=== PATIENT | male | born 1975 | race Caucasian/White ===

== ENCOUNTER 2017-07-11 16:15 | Emergency (ER) | payer OTHER ==
[2017-07-11] MEDS ORDERED: Adenosine* 3 MG/ML VIAL ONE (16:30)
[2017-07-11] MEDS ORDERED: Adenosine* 3 MG/ML VIAL IV PUSH ONE (16:43)
[2017-07-11 17:11] LABS: ABS Basophils 0 10^3/ul (0-0.2); ABS Eosinophils 0.3 10^3/ul (0-0.6); ABS Lymphocytes 2.4 10^3/ul (1.0-4.8); ABS Monocytes 0.8 10^3/ul (0-0.8); ABS Nucleated RBC 0 10^3/ul; Eosinophil % 2.7 % (0-6); Hematocrit 41 % (42-52); Hemoglobin 13.9 g/dl (14.0-18.0); Lymphocyte % 25.3 % (25-47); Mean Corpuscular HGB Conc 34 g/dl (31-36); Mean Corpuscular Hemoglobin 32 pg (27-31); Mean Corpuscular Volume 94 fL (80-94); Mean Platelet Volume 7 um3 (7.4-10.4); Nucleated Red Blood Cells % 0; Platelet Count 290 10^3/ul (150-450); Red Blood Count 4.38 10^6/ul (4.0-5.4); Red Cell Distribution Width 12 % (10.5-15); White Blood Count 9.4 10^3/ul (3.5-10.8)
[2017-07-11 17:25] LABS: EGFR Non-African American 107.6 (>60)
[2017-07-11 19:10] VITALS: BP 127/88
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
== END 2017-07-11 19:12 | disposition home or self-care (01) ==
LOC: ED 16:15
DX: I47.1 Supraventricular tachycardia (principal); I48.91 Unspecified atrial fibrillation; I10 Essential (primary) hypertension; F17.210 Nicotine dependence, cigarettes, uncomplicated
CPT/HCPCS: 36415; 80053; 80178; 83605; 83735; 84443; 84484; 85025; 93005; 96374; 99283; J0153

== ENCOUNTER 2017-11-24 07:42 | Emergency (ER) | payer OTHER ==
[2017-11-24 07:55] VITALS: BP 131/86
--- NOTE | 2017-11-24 09:01 | UC ---
HPI Febrile Illness - HPI Summary HPI Summary: PATIENT HAS HAD INTERMITTENT SWELLING IN HIS RIGHT FOOT OVER THE PAST 6 MONTHS BUT ABOUT 2 DAYS AGO HE DEVELOPED INCREASING PAIN, SWELLING AND REDNESS. SYMPTOMS ARE WORSE IN HIS RIGHT GREAT TOE. NO H/O GOUT. AT THE SAME TIME HE DEVELOPED SEVERE LEFT SHOULDER PAIN AND IS UNABLE TO GO THROUGH FULL RANGE OF MOTION. HE'S HAD FEVER, CHILLS AND OVERALL MALAISE. HE DENIES ANY HIGH RISK ACTIVITIES OR EXPOSURE TO INFECTIOUS DISEASES THAT HE IS AWARE OF. NO RECENT TRAVEL. NO INJURY OR TRAUMA. PAIN IS KEEPING HIM AWAKE AT NIGHT. TOOK TYLENOL ABOUT 2 HOURS CONVEYANCER BUT IS STILL RUNNING FEVER. REPORTS HE WAS ADVISED NOT TO TAKE IBUPROFEN DUE TO HIS MEDICATIONS. - History of Current Complaint Chief Complaint: UCUpperExtremity Time Seen by Provider: 11/24/17 08:35 Hx Obtained From: Patient Onset/Duration: Started Days Ago Timing: Constant Initial Severity: Moderate Current Severity: Moderate Pain Intensity: 10 Pain Scale Used: 0-10 Numeric Aggravating Factors: Nothing Alleviating Factors: Nothing Associated Signs and Symptoms: Arthralgia, Chills, Joint Pain, Myalgia, Swelling - Allergy/Home Medications Allergies/Adverse Reactions: Allergies Allergy/AdvReac Type Severity Reaction Status Date / Time NSAIDS (Non-Steroidal Allergy GI Upset Verified 11/24/17 07:56 Anti-Inflamma Home Medications: Home Medications LORazepam [Ativan 0.5 MG TAB] 0.5 mg PO QID 11/24/17 [History Confirmed 11/24/17 ] [place] Carbonate [[place] Carbonate 300 mg cap] 300 mg PO 11/24/17 [History] [place] Carbonate [[place] Carbonate 600 mg cap] 600 mg PO 11/24/17 [History] Prazosin CAP* [Minipress CAP*] 2 mg PO DAILY 11/24/17 [History Confirmed ] Venlafaxine ER (NF) [Effexor ER (NF)] 150 mg PO DAILY 11/24/17 [History Confirmed 11/24/17] PMH/Surg Hx/FS Hx/Imm Hx Cardiovascular History: Cardiac Disease - SVT, Hypertension, Atrial Fibrillation Respiratory History: Asthma Psychological History: Anxiety, Bipolar Disorder - Surgical History Surgical History: Yes Surgery Procedure, Year, and Place: LT SHOULDER REPAIR. CARDIAC ABLATION x 2 IN [facility] 02/2012 - Family History Known Family History: Positive: Other - CA Negative: Diabetes - Social History Alcohol Use: Weekly Substance Use Type: Marijuana Substance Use Comment - Amount & Last Used: Suboxone Smoking Status (MU): Light Every Day Tobacco Smoker Type: Cigarettes Amount Used/How Often: 1/2 PPD Length of Time of Smoking/Using Tobacco: 20 years Have You Smoked in the Last Year: Yes - Immunization History Most Recent Tetanus Shot: 2009 Review of Systems Constitutional: Fever, Chills Respiratory: Negative Cardiovascular: Negative Gastrointestinal: Negative Musculoskeletal: Arthralgia, Decreased ROM, Edema, Myalgia All Other Systems Reviewed And Are Negative: Yes Physical Exam Triage Information Reviewed: Yes Appearance: Well-Nourished, Ill-Appearing - PT CLEARLY UNCOMFORTABLE AND FEELING UNWELL Vital Signs: Initial Vital Signs Temp 101.3 F 11/24/17 07:51 Pulse 110 11/24/17 07:51 Resp 18 11/24/17 07:51 BP 131/86 11/24/17 07:51 Pulse Ox 98 11/24/17 07:51 Vital Signs Reviewed: Yes Eyes: Positive: Conjunctiva Clear ENT: Positive: Hearing grossly normal Neck: Positive: Supple Respiratory: Positive: No respiratory distress, Wheezing - MILD OCCASIONAL Cardiovascular: Positive: Tachycardia Abdomen Description: Positive: Soft Musculoskeletal: Positive: ROM Limited @ - LEFT SHOULDER, Edema @ - RIGHT FOOT, Other: - TTP LEFT POSTERIOR SHOULDER. RIGHT FOOT SWOLLEN, WARM AND TENDER OVER GREAT TOE Neurological: Positive: Alert Psychological: Positive: Normal Response To Family, Age Appropriate Behavior Skin: Positive: Other - RIGHT FOOT ERYTHEMA Course/Dx - Course Course Of Treatment: PT NEEDS ARE BEYOND WHAT WE CAN OFFER HERE AT THE . NEED TO R/O EARLY SEPSIS. RECOMMENDED TRANSFER TO ED. PT OFFERED TRANSPORT BY AMBULANCE BUT DECLINES. ADVISED THAT BY NOT TRAVELING IN A MONITORED SETTING HE COULD BE RISKING WORSENING OF HIS CONDITION THAT COULD POSE A THREAT TO HIS LIFE , HEALTH AND MEDICAL SAFETY. HE VERBALIZES UNDERSTANDING AND CONTINUES TO DECLINE AMBULANCE TRANSFER. - Diagnoses Clinic Provider Diagnoses: FEVER/ARTHRALGIA - Provider Notifications Discussed Patient Care With: Andrew Santos - TO [facility] BY PRIVATE CAR Time Discussed With Above Provider: 09:09 Instructed by Provider To: MD Will See In ED Discharge - Sign-Out/Discharge Documenting (check all that apply): Discharge/Admit/Transfer - Discharge Plan Condition: Stable Disposition: HOME Patient Education Materials: Fever in Adults (ED), Swollen Joint (ED) Referrals: No Primary Care Phys,NOPCP [Primary Care Provider] - Additional Instructions: I'M CONCERNED ABOUT YOUR CONSTELLATION OF SYMPTOMS INCLUDING RIGHT FOOT SWELLING , PAIN AND REDNESS WITH FEVER AND LEFT SHOULDER PAIN. I FEEL YOU WOULD BE BETTER SERVED TO HAVE EVALUATION DONE IN THE EMERGENCY DEPARTMENT. GO DIRECTLY THERE FROM HERE FOR FURTHER MANAGEMENT. YOU HAVE DECLINED AMBULANCE TRANSFER. BE ADVISED THAT BY NOT TRAVELING IN A MONITORED SETTING YOU COULD BE RISKING WORSENING OF YOUR CONDITION THAT COULD POSE A THREAT TO YOUR LIFE, HEALTH AND MEDICAL SAFETY. - Billing Disposition and Condition Condition: STABLE Disposition: Home
== END 2017-11-24 09:08 | disposition home or self-care (01) ==
LOC: UCEAST 07:42
DX: R50.9 Fever, unspecified (principal); M25.50 Pain in unspecified joint; F31.9 Bipolar disorder, unspecified; F17.210 Nicotine dependence, cigarettes, uncomplicated; I10 Essential (primary) hypertension; I48.91 Unspecified atrial fibrillation; F41.9 Anxiety disorder, unspecified
CPT/HCPCS: 99211; G0463

== ENCOUNTER 2017-11-24 09:29 | Inpatient (IN) | payer OTHER ==
[2017-11-24] MEDS ORDERED: NS 0.9% 1000 ML*IV.FLUID IV ONE (10:00)
[2017-11-24] MEDS ORDERED: Acetaminophen TAB* 325 MG PO ONE (10:04)
[2017-11-24] MEDS ORDERED: Piperacillin/Tazobac ADVAN(*) 3.375 GM in NS 0.9% 100 ML* 100 ML IVPB ONE (10:05)
[2017-11-24] MEDS ORDERED: NS 0.9% 250 ML* 250 ML ONE (10:23)
[2017-11-24] MEDS ORDERED: NS 0.9% 100 ML* 100 ML ONE (10:23)
[2017-11-24] MEDS ORDERED: Vancomycin(*) 1,250 MG in NS 0.9% 250 ML* 250 ML IVPB ONE (10:37)
[2017-11-24 10:43] LABS: INR 1.09 (0.77-1.02)
[2017-11-24] MEDS ORDERED: Vancomycin per Pharmacy* NOTE FOLLOW UP PRN (10:44)
--- NOTE | 2017-11-24 10:49 | RAD ---
INDICATION: Chest pain COMPARISON: May 26, 2012 TECHNIQUE: An AP portable view obtained at 1035 hours is submitted. FINDINGS: Bones/Soft Tissues: There are no acute bony findings. Cardiomediastinal: The cardiomediastinal silhouette is normal. Lungs: There are no infiltrates. Pleura: There are no pleural effusions. Other: None IMPRESSION: NO ACTIVE DISEASE.
--- NOTE | 2017-11-24 10:52 | RAD ---
Indication: Redness and swelling between the first and second metatarsal phalangeal joints without proceeding injury. Comparison: No relevant prior exams available on the [facility] [place] [place] [facility] for comparison. Technique: AP, lateral, and oblique views RIGHT foot. Report: Normal articular alignment. No fracture, findings of stress reaction, or suspicious focal osseous lesions. Minimal osteophytosis and moderate joint space narrowing at the first metatarsal phalangeal joint secondary to osteoarthritis. Small loose body or accessory ossicle noted at the dorsal aspect of the first metatarsal phalangeal joint. No osseous erosions or soft tissue calcification evident. No suspicious soft tissue contour abnormality or foreign body evident. Negative for subcutaneous emphysema. 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
[2017-11-24 11:00] LABS: ABS Basophils 0 10^3/ul (0-0.2); ABS Eosinophils 0 10^3/ul (0-0.6); ABS Lymphocytes 1.2 10^3/ul (1.0-4.8); ABS Neutrophils 11.2 10^3/ul (1.5-7.7); ABS Nucleated RBC 0 10^3/ul; Eosinophil % 0.4 % (0-6); Hematocrit 38 % (42-52); Lymphocyte % 9.2 % (25-47); Mean Corpuscular HGB Conc 34 g/dl (31-36); Mean Corpuscular Hemoglobin 32 pg (27-31); Mean Corpuscular Volume 92 fL (80-94); Mean Platelet Volume 7.7 um3 (7.4-10.4); Nucleated Red Blood Cells % 0; Platelet Count 217 10^3/ul (150-450); Red Blood Count 4.12 10^6/ul (4.00-5.40); Red Cell Distribution Width 13 % (10.5-15); White Blood Count 13.5 10^3/ul (3.5-10.8)
[2017-11-24] MEDS ORDERED: Vancomycin(*) 0 MG in NS 0.9% 250 ML* 250 ML IVPB SCH (11:00)
[2017-11-24 11:01] LABS: EGFR Non-African American 102.6 (>60)
[2017-11-24] MEDS: Vancomycin(*) 1,000 MG in NS 0.9% 250 ML* 250 ML IVPB ONE ×2 (11:39→15:33)
[2017-11-24] MEDS ORDERED: Magnesium Hydroxide LIQ* 30 ML UDC PO PRN (12:25)
[2017-11-24] MEDS ORDERED: Albuterol 2.5 MG/3 ML NEB.SOL* (0.083%) INH PRN (12:25)
[2017-11-24] MEDS ORDERED: Ondansetron 40 MG VIAL* 2 MG/ML 20 ML VIAL IV PRN (12:25)
[2017-11-24] MEDS ORDERED: Al Hydrox/Mg Hydrox/Simet LIQ* 30 ML UDC PO PRN (12:25)
[2017-11-24] MEDS ORDERED: LORazepam TAB(*) 0.5 MG PO PRN (12:31)
[2017-11-24 14:06] LABS: Uric Acid 5.6 mg/dL (4.4-7.6)
[2017-11-24] MEDS: CMC:Lithium Carbonate ER (NF) 300 MG TAB.ER PO SCH ×2 (14:30→21:18)
[2017-11-24] MEDS: Amphetamine MIXED SALT TAB* 10 MG TAB PO SCH ×2 (14:30→21:19)
[2017-11-24] MEDS: oxyCODONE/Acetamin 5/325 MG* TAB PO PRN (14:40)
[2017-11-24] MEDS: Acetaminophen TAB* 325 MG PO PRN ×2 (14:40→21:17)
[2017-11-24] MEDS: Piperacillin/Tazobac ADVAN(*) 3.375 GM in NS 0.9% 100 ML* 100 ML IVPB SCH ×2 (15:46→23:23)
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
[2017-11-24] MEDS: Vancomycin(*) 1,000 MG in NS 0.9% 250 ML* 250 ML IVPB SCH (21:17)
[2017-11-24] MEDS: Venlafaxine EXT RELEASE CAP* 75 MG PO SCH (21:17)
[2017-11-25] MEDS ORDERED: ceFAZolin 2 GM PREMIX (*) 2 GM/50 ML BAG IVPB ONE (04:30)
[2017-11-25] MEDS ORDERED: Ketorolac INJ* 30 MG/ML 1 ML VIAL IV ONE (04:45)
[2017-11-25] MEDS ORDERED: Ketorolac INJ* 30 MG/ML 1 ML VIAL ONE (04:46)
[2017-11-25 05:44] LABS: ABS Basophils 0 10^3/ul (0-0.2); ABS Eosinophils 0.2 10^3/ul (0-0.6); ABS Lymphocytes 0.6 10^3/ul (1.0-4.8); ABS Monocytes 0.4 10^3/ul (0-0.8); ABS Neutrophils 6.9 10^3/ul (1.5-7.7); ABS Nucleated RBC 0 10^3/ul; Hematocrit 39 % (42-52); Hemoglobin 13.1 g/dl (14.0-18.0); Lymphocyte % 7.3 % (25-47); Mean Corpuscular HGB Conc 34 g/dl (31-36); Mean Corpuscular Hemoglobin 31 pg (27-31); Mean Corpuscular Volume 93 fL (80-94); Mean Platelet Volume 7.7 um3 (7.4-10.4); Nucleated Red Blood Cells % 0; Platelet Count 185 10^3/ul (150-450); Red Blood Count 4.16 10^6/ul (4.00-5.40); Red Cell Distribution Width 13 % (10.5-15); White Blood Count 8.1 10^3/ul (3.5-10.8)
[2017-11-25 05:52] LABS: EGFR Non-African American 110.2 (>60)
[2017-11-25] MEDS ORDERED: ceFAZolin 2 GM PREMIX (*) 2 GM/50 ML BAG IVPB SCH (06:00)
--- NOTE | 2017-11-25 06:19 | PN ---
Progress Note - Progress Note Date of Service: 11/25/17 Note: Paged for tachypnea. ON my exam patient c/o left shoulder pain. Limited ROM due to pain. Old injury but has not been causing problems. His blood cultures are positive for MSSA. Would be concerned for septic left shoulder. Consider ortho eval and joint aspiration in AM. Patient states he last used IV drugs over a year ago. Gave one time toradol IV for pain as patient is concerned for interaction of NSAIDs with his LIthium. Will also get a repeat CXR in setting of tachypnea. But i suspect it is atelectasis secondary to pain.
[2017-11-25] MEDS: Vancomycin(*) 1,000 MG in NS 0.9% 250 ML* 250 ML IVPB SCH (06:42)
[2017-11-25] MEDS: Piperacillin/Tazobac ADVAN(*) 3.375 GM in NS 0.9% 100 ML* 100 ML IVPB SCH (07:56)
--- NOTE | 2017-11-25 08:09 | RAD ---
HISTORY: sob COMPARISONS: November 24, 2017 VIEWS: 1: frontal portable view of the chest at 6:27 AM FINDINGS: LINES AND TUBES: None. CARDIOMEDIASTINAL SILHOUETTE: The cardiomediastinal silhouette is normal for portable technique. PLEURA: The costophrenic angles are sharp. No pleural abnormalities are noted. LUNG PARENCHYMA: The lungs are clear. ABDOMEN: The upper abdomen is clear. There is no subphrenic gas. BONES AND SOFT TISSUES: No bone or soft tissue abnormalities are noted. IMPRESSION: NO ACTIVE CARDIOPULMONARY DISEASE.
[2017-11-25] MEDS: CMC:Lithium Carbonate ER (NF) 300 MG TAB.ER PO SCH ×3 (09:25→19:30)
[2017-11-25] MEDS: Venlafaxine EXT RELEASE CAP* 75 MG PO SCH ×2 (09:25→19:30)
[2017-11-25] MEDS: Amphetamine MIXED SALT TAB* 10 MG TAB PO SCH ×3 (09:26→16:35)
--- NOTE | 2017-11-25 09:36 | PN ---
Subjective Date of Service: 11/25/17 Interval History: HOSPITALIST PROGRESS NOTE Patient seen and examined at bedside. Care reviewed and d/w Thelma Jacobs RN. He feels a little better today, but still has left shoulder and right foot pain. Overnight became very diaphoretic, tachypneic, as per RN report. States he was in his usual state of health until 11/23/17 when he woke up with right foot pain and left shoulder pain that progressed during the day. That night he started to have chills and fevers, and went to [facility] 11/24/17, later on sent to ED. Denies chest pain or palpitations. Family History: Unchanged from Admission Social History: Unchanged from Admission Past Medical History: Unchanged from Admission Objective Active Medications: Acetaminophen (Tylenol Tab*) 975 mg PO Q6H PRN PRN Reason: FEVER/PAIN Last Admin: 11/24/17 21:17 Dose: 975 mg Al Hydrox/Mg Hydrox/Simethicone (Maalox Plus*) 30 ml PO Q6H PRN PRN Reason: INDIGESTION Albuterol (Ventolin 2.5 Mg/3 Ml Neb.Kamilla*) 2.5 mg INH [id number] AWAKE PRN PRN Reason: sob/wheezing Amphetamine/Dextroamphetamine (Adderall Tab*) 15 mg PO 0800,1200,1600 [facility] Last Admin: 11/25/17 09:26 Dose: 15 mg Cefazolin Sodium/Dextrose (Kefzol 2 Gm Premix(*)) 2 gm in 50 mls @ 100 mls/hr IVPB 0430,1230,2030 [facility] Sodium Chloride (Ns 0.9% 1000 Ml*) 1,000 mls @ 100 mls/hr IV PER RATE [facility] [place] Carbonate ([place]um[place]la Carbonate Er (Nf)) 300 mg PO TID [facility]; Protocol Last Admin: 11/25/17 09:25 Dose: 300 mg Lorazepam (Ativan Tab(*)) 0.5 mg PO TID PRN PRN Reason: ANXIETY Last Admin: 11/25/17 09:25 Dose: 0.5 mg Magnesium Hydroxide (Milk Of Magnesia Liq*) 30 ml PO Q4H PRN PRN Reason: CONSTIPATION Ondansetron HCl (Zofran 40 Mg Vial*) 4 mg IV Q4H PRN PRN Reason: NAUSEA/VOMITING Oxycodone/Acetaminophen (Percocet 5/325 Tab*) 2 tab PO Q6H PRN PRN Reason: Pain Last Admin: 11/24/17 14:40 Dose: 2 tab Venlafaxine HCl (Effexor Xr Cap*) 150 mg PO BID SHAUN Last Admin: 11/25/17 09:25 Dose: 150 mg Vital Signs - 8 hr 11/25/17 11/25/17 11/25/17 02:27 03:25 03:52 Temperature 98.7 F 99.1 F Pulse Rate 83 89 Respiratory 28 32 Rate Blood Pressure 124/80 118/86 (mmHg) O2 Sat by Pulse 100 100 Oximetry 11/25/17 11/25/17 11/25/17 05:21 06:24 09:25 Temperature 98.6 F 98.1 F Pulse Rate Respiratory 28 18 Rate Blood Pressure 123/70 (mmHg) O2 Sat by Pulse 100 Oximetry Oxygen Devices in Use Now: None Appearance: Young well built male sitting up in bed in [facility]. Eyes: No Scleral Icterus Ears/Nose/Mouth/Throat: Mucous Membranes Moist Neck: Trachea Midline Respiratory: Symmetrical Chest Expansion and Respiratory Effort, Clear to Auscultation Cardiovascular: RRR - Normal S1 and S2, distant sounds Abdominal: NL Sounds; No Tenderness; No Distention Extremities: No Edema, - - Full passive ROM of left shoulder, but active internal rotation limited by pain Skin: - - Old track riggs on both AC fossas, multiple needle riggs in both arms - patient states they're from multiple need sticks in ED Neurological: Alert and Oriented x 3, NL Muscle Strength and Tone Result Diagrams: 11/25/17 04:58 11/25/17 04:58 Assess/Plan/Problems-Billing Assessment: Mr Hurst is a 42yo M with PMH of atrial fibrillation s/p ablation x 2, anxiety , depression, ADHD, left shoulder trauma requiring surgery >20 years ago, prior h/o IVDU (heroin/meth), who presented to ED with c/o left shoulder/right foot pain, fever, chills, found to have MSSA septicemia. - Patient Problems (1) MSSA (methicillin susceptible Staphylococcus aureus) septicemia Comment: - Patient states he last IV drug use was 1 year ago. - Two bottles blood cultures growing MSSA. - Continue IVF, Cefazolin. - ID consult requested. - No murmur on PE. - Check transthoracic echocardiogram, may need transesophageal. - I'm concerned patient may have endocarditis considering his risk factors. (2) Left shoulder pain Comment: - Had shoulder trauma with surgery 20 years ago, but denies chronic pain. This pain is new and started 3 days ago. Concern for infection since he's bacteremic. - Check shoulder xray and consult Orthopedics. (3) Right foot pain Comment: - Also acute in the setting of bacteremia. - Uric acid was 5.6, CRP 89, ESR 28. - Consult Ortho. (4) Afib Comment: - S/p ablation x 2. - In NSR, not on any cardiac medications. (5) ADHD Comment: - Continue Adderall. (6) Anxiety Comment: - Patient also has depression and possible bipolar. - Continue Chumuckla, alprazolam, and Effexor. (7) DVT prophylaxis Comment: - SQ heparin. (8) Full code status Status and Disposition: Change to inpatient.
--- NOTE | 2017-11-25 11:06 | RAD ---
HISTORY: Pain, remote h/o shoulder trauma, left scapular pain COMPARISONS: None VIEWS: 4, Frontal internal rotation, external rotation, outlet, and axillary views of the left shoulder FINDINGS: BONE DENSITY: Normal. BONES: There is no displaced fracture. There is postsurgical change to the glenoid. JOINTS: There is no arthropathy. ALIGNMENT: There is no dislocation. SOFT TISSUES: Unremarkable. OTHER FINDINGS: None. IMPRESSION: POSTSURGICAL CHANGE. NO ACUTE OSSEOUS INJURY. IF SYMPTOMS PERSIST, RECOMMEND REPEAT IMAGING.
--- NOTE | 2017-11-25 11:29 | ECHO ---
Patient: BHARAT CAMPO [facility] Rec#: [id number] : 1975 Date: 11/25/2017 Age: 42y Height: 172.72 cm / 68.0 in Weight: 96.16 kg / 211.9 lbs Sex: M BSA: 2.1 Room#: 443 Admit Date#: 11/24/2017 Type: Inpatient Referring: Lizeth Marks MD Reading: Jose Angel Mejía MD Reach Truck Operator: Nathalie Cannon RDCS,RDMS CC: Manuel Carson MD Transthoracic Echocardiogram Indication: MSSA septicemia BP: 111/65 HR: 77 Rhythm: NSR Findings History: Afib, ablation, smoker, IVDU Technical Comments: The study quality is fair. The study is technically limited due to poor parasternal windows. Left Ventricle: The left ventricular chamber size is normal. Mild concentric left ventricular hypertrophy is observed. Global left ventricular wall motion and contractility are within normal limits. Left ventricular systolic function is at the lower limits of normal. The estimated ejection fraction is 50-55%. Normal left ventricular diastolic filling is observed. Left Atrium: The left atrium is mildly dilated. Right Ventricle: The right ventricular chamber size and systolic function are within normal limits. Right Atrium: The right atrium is slightly dilated. Aortic Valve: The aortic valve is trileaflet. Systolic excursion of the aortic valve is normal. There is no evidence of aortic regurgitation. There is no evidence of aortic stenosis. There is no aortic vegetation present. Mitral Valve: The mitral valve leaflets are mildly thickened. There is no evidence of mitral regurgitation. There is no evidence of mitral stenosis. No vegetation is observed on the mitral valve. Tricuspid Valve: The tricuspid valve leaflets are normal. There is trace tricuspid regurgitation. No pulmonary hypertension is noted. No vegetation is observed on the tricuspid valve. Pulmonic Valve: The pulmonic valve appears normal. There is no evidence of pulmonic regurgitation. No vegetation is observed on the pulmonic valve. Pericardium: There is no significant pericardial effusion. Aorta: The aortic root appears normal. There is no dilatation of the aortic arch. Pulmonary Artery: The main pulmonary artery appears normal. Venous: The inferior vena cava appears normal in size. There is a greater than 50% respiratory change in the inferior vena cava dimension. Conclusions Mild concentric left ventricular hypertrophy is observed. Left ventricular systolic function is at the lower limits of normal. The estimated ejection fraction is 50-55%. There is trace tricuspid regurgitation. From available views, there are no significant , pedunculated masses on the mitral, tricuspid, aortic or pulmonic valve to suggest a vegetation.. No reports of prior studies are offered for comparison. Measurements Name Value Normal Range RVIDd (AP) 2D 3.6 cm (0.9 - 2.6) RVDdMajor (2D) 3.1 cm (2.2 - 4.4) RAd ISD 4CH 5.2 cm (3.4 - 4.9) RA (A4C)W 4.1 cm (2.9 - 4.6) IVSd (2D) 1.1 cm (0.6 - 1) LVPWd (2D) 1.2 cm (0.6 - 1) LVIDd (2D) 5 cm (3.6 - 5.4) LVIDs (2D) 3.4 cm - LV FS (2D) 32 % (25 - 45) Aortic Annulus 2.3 cm (1.4 - 2.6) Ao root diameter (2D) 3.2 cm (2.1 - 3.5) Ascending Ao 3.4 cm (2.1 - 3.4) LA dimension (AP) 2D 4.7 cm (2.3 - 3.8) LAd ISD 4CH 6.3 cm (2.9 - 5.3) LA ISD 4CH W 4.5 cm (2.5 - 4.5) Name Value Normal Range LA ESV SP 4CH (A/L) 79.12 ml - LA ESV SP 2CH (A/L) 90.22 ml - LA ESV BP (A/L) 85.24 ml - LA ESV BP (A/L) index 41 ml/m2 - LA ESV SP 4CH (MOD) 76.16 ml - LA ESV SP 2CH (MOD) 88.08 ml - Name Value Normal Range MV E-wave Vmax 1.4 m/sec - MV deceleration time 191 msec - MV A-wave Vmax 0.7 m/sec - MV E:A ratio 2 ratio - LV septal e' Vmax 0.11 m/sec - LV lateral e' Vmax 0.11 m/sec - LV E:e' septal ratio 13 ratio - LV E:e' lateral ratio 13 ratio - Name Value Normal Range AV Vmax 1.4 m/sec - AV VTI 23.3 cm - AV peak gradient 8 mmHg - AV mean gradient 3.8 mmHg - LVOT Vmax 1.2 m/sec - LVOT VTI 20.4 cm - LVOT peak gradient 6 mmHg - LVOT mean gradient 3 mmHg - YANI Vmax 0.9 m/sec - Name Value Normal Range MV Vmax 1.3 m/sec - MV VTI 30.5 cm - MV peak gradient 7 mmHg - MV mean gradient 3 mmHg - MV PHT 77 msec - MVA (PHT) 2.9 cm2 - Name Value Normal Range TR Vmax 2.2 m/sec - TR peak gradient 19 mmHg - RAP 3 mmHg - RVSP 32 mmHg - IVC diameter 1.6 cm - Name Value Normal Range PV Vmax 0.9 m/sec - PV peak gradient 3.1 mmHg -
[2017-11-25] MEDS ORDERED: Vancomycin Trough Check NOTE FOLLOW UP ONE (12:30)
--- NOTE | 2017-11-25 13:18 | CONSULT ---
Consult Consult: Full consultation dictated. Left shoulder joint less likely septic due to good ROM and lack of erythema/ edema though history remains concerning. Will MRI shoulder for abscess and repeat sed rate/ CRP. Will wash out if required, tentatively tonight. Hold heparin and NPO until determined if will go to OR - awaiting MRI
[2017-11-25 13:30] LABS: Urine Appearance Clear; Urine Blood Negative (Negative); Urine Color Amber; Urine Ketones Negative (Negative); Urine Protein 1+(30 mg/dL) (Negative); Urine Specific Gravity 1.032 (1.010-1.030); Urine Urobilinogen Positive (Negative)
[2017-11-25] MEDS ORDERED: Heparin VIAL(*) 5000 UNITS/ML VIAL (FIVE THOUSAND) SUBCUT SCH (14:00)
--- NOTE | 2017-11-25 14:55 | ED ---
Antoni Sauecdo Angela, scribed for Bobbi Juarez MD on 11/24/17 at 1002 . Complex/Multi-Sys Presentation - HPI Summary HPI Summary: This pt is a 42 y[facility] c/o right foot pain and swelling since yesterday morning. Pt states he has had intermittent swelling on his right foot for the past few months but was never as painful as today. He reports the swelling and pain is worse on the right great toe and his pain has been constant. Pt denies hx of gout, diabetes, or blood clots. At the same time since yesterday morning pt developed left shoulder pain. He states his pain is on the posterior aspect of his left shoulder. His pain is constant and is exacerbated with deep breaths. Pt reports chills and cold sweats last night. This morning pt had a temperature of 101 F at Urgent Care. Denies nausea, vomiting, abd pain, cough. PMHx includes atrial fibrillation. He is not taking anticoagulants. His residential energy auditor is Dr. Carson. Pt states he stopped taking his metoprolol months ago. Surgeries: cardiac ablations x2 (5-6 years ago), left shoulder repair (at least 20 years ago). Pt admits to occasional alcohol, tobacco and marijuana use. He states he smokes half a ppd. He is a former IVDU, denies recent use. NKDA. - History Of Current Complaint Chief Complaint: EDGeneral Time Seen by Provider: 11/24/17 09:30 Hx Obtained From: Patient Onset/Duration: Lasting Days - 1, Still Present Timing: Days - 1 Severity Currently: Severe Location: Pain At: - right foot and left shoulder pain Aggravating Factor(s): nothing Alleviating Factor(s): nothing Associated Signs And Symptoms: Positive: Fever, Other - POS: chills, diaphoresis , left shoulder pain, right foot pain and swelling. Negative: Cough, Nausea, Vomiting, Abdominal Pain - Allergies/Home Medications Allergies/Adverse Reactions: Allergies Allergy/AdvReac Type Severity Reaction Status Date / Time NSAIDS (Non-Steroidal Allergy GI Upset Verified 11/24/17 09:39 Anti-Inflamma Home Medications: Home Medications Amphetamine MIXED SALTS TAB* [Adderall TAB*] 15 mg PO TID 11/24/17 [History Confirmed 11/24/17] LORazepam TAB(*) [Ativan 0.5 MG TAB (*)] 0.5 mg PO TID PRN MDD a 11/24/17 [ History Confirmed 11/24/17] [place] Carbonate ER (NF) [[place] Carbonate ER] 300 mg PO TID 11/24/17 [ History Confirmed 11/24/17] PMH/Surg Hx/FS Hx/Imm Hx Endocrine/Hematology History: Denies: Hx Diabetes, Hx Thyroid Disease Cardiovascular History: Reports: Hx Atrial Fibrillation, Hx Hypertension, Other Cardiovascular Problems/Disorders - A-FIB/SVT Respiratory History: Reports: Hx Asthma - A CHILD, Other Respiratory Problems /Disorders - PT IS A 1-2 PPD SMOKER Denies: Hx Chronic Obstructive Pulmonary Disease (COPD) GI History: Denies: Hx Ulcer Musculoskeletal History: Reports: Hx Orthopedic Injury - LT ARM/SHOULDER. PEARL AND HAS HAD SHOULDER PINNED. Denies: Hx Gout Neurological History: Reports: Hx Headaches - PT STATES HE GETS SOME SIGNIFICANT HEADACHES. Denies: Other Neuro Impairments/Disorders Psychiatric History: Reports: Hx Anxiety, Hx Substance Abuse Comment Only: Hx Attention Deficit Hyperactivity Disorder - UNKNOWN - Cancer History Hx Chemotherapy: No Hx Radiation Therapy: No - Surgical History Surgery Procedure, Year, and Place: LT SHOULDER REPAIR. CARDIAC ABLATION x 2 IN [facility] 02/2012 Hx Anesthesia Reactions: No Infectious Disease History: No Infectious Disease History: Denies: Hx Hepatitis, Hx Human Immunodeficiency Virus (HIV), History Other Infectious Disease, Traveled Outside the [place] in Last 30 Days - Family History Known Family History: Positive: Other - CA Negative: Diabetes - Social History Alcohol Use: Weekly Substance Use Type: Reports: Marijuana Substance Use Comment - Amount & Last Used: Suboxone. Former IVDU. Hx Tobacco Use: Yes Smoking Status (MU): Light Every Day Tobacco Smoker Type: Cigarettes Amount Used/How Often: 1/2 PPD Length of Time of Smoking/Using Tobacco: 20 years Have You Smoked in the Last Year: Yes Review of Systems Positive: Fever, Chills, Skin Diaphoresis Negative: Cough Negative: Abdominal Pain, Vomiting, Nausea Musculoskeletal: Other - right foot pain, left shoulder pain Positive: Edema - right foot, primarily right great toe All Other Systems Reviewed And Are Negative: Yes Physical Exam - Summary Physical Exam Summary: GENERAL: Patient is a well developed and nourished male who is lying comfortable in the stretcher. Patient is not in any acute respiratory distress. HEAD AND FACE: Normocephalic EYES: PERRLA, EOMI x 2. EARS: Hearing grossly intact. MOUTH: Oropharynx within normal limits. NECK: Supple, trachea is midline, no adenopathy, no JVD, no carotid bruit. CHEST: Symmetric, no tenderness at palpation LUNGS: Clear to auscultation bilaterally. No wheezing or crackles. CVS: Regular rate and rhythm, S1 and S2 present, no murmurs or gallops appreciated. ABDOMEN: Soft, non-tender. Bowel sounds are normal. No abdominal abnormal pulsations. EXTREMITIES: Full ROM in all major joints, no cyanosis or clubbing. Bilateral feet has callouses, but there is redness and swelling along the dorsal aspect of the right foot along the great toe. NEURO: Alert and oriented x 3. No acute neurological deficits. Speech is normal and follows commands. SKIN: Dry and warm Triage Information Reviewed: Yes Vital Signs On Initial Exam: Initial Vitals Temp Pulse Resp BP Pulse Ox 99.4 F 98 16 143/94 98 11/24/17 09:36 11/24/17 09:36 11/24/17 09:36 11/24/17 09:36 11/24/17 09:36 Vital Signs Reviewed: Yes Diagnostics - Vital Signs Vital Signs Temp Pulse Resp BP Pulse Ox 11/24/17 09:36 99.4 F 98 16 143/94 98 - Laboratory Lab Results: Lab Results 11/24/17 11/24/17 11/24/17 Range/Units 10:24 10:24 10:24 WBC 13.5 H (3.5-10.8) 10^3/ul RBC 4.12 (4.00-5.40) 10^6/ul Hgb 13.0 L (14.0-18.0) g/dl Hct 38 L (42-52) % MCV 92 (80-94) fL MCH 32 H (27-31) pg MCHC 34 (31-36) g/dl RDW 13 (10.5-15) % Plt Count 217 (150-450) 10^3/ul MPV 7.7 (7.4-10.4) um3 Neut % (Auto) 82.9 (38-83) % Lymph % (Auto) 9.2 L (25-47) % Appling % (Auto) 7.2 H (0-7) % Eos % (Auto) 0.4 (0-6) % Baso % (Auto) 0.3 (0-2) % Absolute Neuts (auto) 11.2 H (1.5-7.7) 10^3/ul Absolute Lymphs (auto) 1.2 (1.0-4.8) 10^3/ul Absolute Monos (auto) 1.0 H (0-0.8) 10^3/ul Absolute Eos (auto) 0 (0-0.6) 10^3/ul Absolute Basos (auto) 0 (0-0.2) 10^3/ul Absolute Nucleated RBC 0 10^3/ul Nucleated RBC % 0 ESR 28 H (0-14) mm/Hr INR (Anticoag Therapy) 1.09 H (0.77-1.02) APTT 28.4 (26.0-36.3) seconds Sodium 130 L (135-145) mmol/L Potassium 4.3 (3.5-5.0) mmol/L Chloride 99 L (101-111) mmol/L Carbon Dioxide 22 (22-32) mmol/L Anion Gap 9 (2-11) mmol/L BUN 9 (6-24) mg/dL Creatinine 0.83 (0.67-1.17) mg/dL Est GFR ( Amer) 132.0 (>60) Est GFR (Non-Af Amer) 102.6 (>60) BUN/Creatinine Ratio 10.8 (8-20) Glucose 105 H (70-100) mg/dL Lactic Acid (0.5-2.0) mmol/L Uric Acid 5.6 (4.4-7.6) mg/dL Calcium 9.0 (8.6-10.3) mg/dL Total Bilirubin 0.70 (0.2-1.0) mg/dL AST 15 (13-39) U/L ALT 14 (7-52) U/L Alkaline Phosphatase 59 (34-104) U/L Troponin I 0.00 (<0.04) ng/mL C-Reactive Protein 89.09 H (<8.01) mg/L Total Protein 7.0 (6.4-8.9) g/dL Albumin 3.8 (3.2-5.2) g/dL Globulin 3.2 (2-4) g/dL Albumin/Globulin Ratio 1.2 (1-3) 11/24/17 11/24/17 11/24/17 Range/Units 10:24 14:20 14:20 WBC (3.5-10.8) 10^3/ul RBC (4.00-5.40) 10^6/ul Hgb (14.0-18.0) g/dl Hct (42-52) % MCV (80-94) fL MCH (27-31) pg MCHC (31-36) g/dl RDW (10.5-15) % Plt Count (150-450) 10^3/ul MPV (7.4-10.4) um3 Neut % (Auto) (38-83) % Lymph % (Auto) (25-47) % Appling % (Auto) (0-7) % Eos % (Auto) (0-6) % Baso % (Auto) (0-2) % Absolute Neuts (auto) (1.5-7.7) 10^3/ul Absolute Lymphs (auto) (1.0-4.8) 10^3/ul Absolute Monos (auto) (0-0.8) 10^3/ul Absolute Eos (auto) (0-0.6) 10^3/ul Absolute Basos (auto) (0-0.2) 10^3/ul Absolute Nucleated RBC 10^3/ul Nucleated RBC % ESR (0-14) mm/Hr INR (Anticoag Therapy) (0.77-1.02) APTT (26.0-36.3) seconds Sodium (135-145) mmol/L Potassium (3.5-5.0) mmol/L Chloride (101-111) mmol/L Carbon Dioxide (22-32) mmol/L Anion Gap (2-11) mmol/L BUN (6-24) mg/dL Creatinine (0.67-1.17) mg/dL Est GFR ( Amer) (>60) Est GFR (Non-Af Amer) (>60) BUN/Creatinine Ratio (8-20) Glucose (70-100) mg/dL Lactic Acid 0.5 1.0 (0.5-2.0) mmol/L Uric Acid (4.4-7.6) mg/dL Calcium (8.6-10.3) mg/dL Total Bilirubin (0.2-1.0) mg/dL AST (13-39) U/L ALT (7-52) U/L Alkaline Phosphatase (34-104) U/L Troponin I 0.00 (<0.04) ng/mL C-Reactive Protein (<8.01) mg/L Total Protein (6.4-8.9) g/dL Albumin (3.2-5.2) g/dL Globulin (2-4) g/dL Albumin/Globulin Ratio (1-3) 11/24/17 11/25/17 11/25/17 Range/Units 17:58 04:58 04:58 WBC 8.1 (3.5-10.8) 10^3/ul RBC 4.16 (4.00-5.40) 10^6/ul Hgb 13.1 L (14.0-18.0) g/dl Hct 39 L (42-52) % MCV 93 (80-94) fL MCH 31 (27-31) pg MCHC 34 (31-36) g/dl RDW 13 (10.5-15) % Plt Count 185 (150-450) 10^3/ul MPV 7.7 (7.4-10.4) um3 Neut % (Auto) 85.8 H (38-83) % Lymph % (Auto) 7.3 L (25-47) % Appling % (Auto) 4.7 (0-7) % Eos % (Auto) 2.0 (0-6) % Baso % (Auto) 0.2 (0-2) % Absolute Neuts (auto) 6.9 (1.5-7.7) 10^3/ul Absolute Lymphs (auto) 0.6 L (1.0-4.8) 10^3/ul Absolute Monos (auto) 0.4 (0-0.8) 10^3/ul Absolute Eos (auto) 0.2 (0-0.6) 10^3/ul Absolute Basos (auto) 0 (0-0.2) 10^3/ul Absolute Nucleated RBC 0 10^3/ul Nucleated RBC % 0 ESR (0-14) mm/Hr INR (Anticoag Therapy) (0.77-1.02) APTT (26.0-36.3) seconds Sodium 133 L (135-145) mmol/L Potassium 4.1 (3.5-5.0) mmol/L Chloride 103 (101-111) mmol/L Carbon Dioxide 26 (22-32) mmol/L Anion Gap 4 (2-11) mmol/L BUN 8 (6-24) mg/dL Creatinine 0.78 (0.67-1.17) mg/dL Est GFR ( Amer) 133.4 (>60) Est GFR (Non-Af Amer) 110.2 (>60) BUN/Creatinine Ratio 10.3 (8-20) Glucose 121 H (70-100) mg/dL Lactic Acid (0.5-2.0) mmol/L Uric Acid (4.4-7.6) mg/dL Calcium 8.1 L (8.6-10.3) mg/dL Total Bilirubin (0.2-1.0) mg/dL AST (13-39) U/L ALT (7-52) U/L Alkaline Phosphatase (34-104) U/L Troponin I 0.00 (<0.04) ng/mL C-Reactive Protein (<8.01) mg/L Total Protein (6.4-8.9) g/dL Albumin (3.2-5.2) g/dL Globulin (2-4) g/dL Albumin/Globulin Ratio (1-3) Result Diagrams: 11/25/17 04:58 11/25/17 04:58 Lab Statement: Any lab studies that have been ordered have been reviewed, and results considered in the medical decision making process. - Radiology Chest XR Xray Interpretation: No Acute Changes - IMPRESSION: No active disease. Dr. Juarez has reviewed this radiology report. 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 Dr. Juarez has reviewed this radiology report. Radiology Interpretation Completed By: Radiologist - EKG 09:53 Cardiac Rate: NL - at 95 bpm EKG Rhythm: Sinus Rhythm EKG Interpretation: No ischemic changes. Complex Multi-Symp Course/Dx Course Of Treatment: 42-year-old male presenting worsening redness, swelling and pain along the right great toe. On arrival, patient was found to be febrile up to 102F and tachycardic and so was started on the sepsis pathway. Patient was given a total of 2 L of IV fluids, covered with vancomycin and Zosyn. His workup is remarkable for a white count of 13 him a chest x-ray shows no pneumonia, x-ray of his right foot shoes findings consistent with osteo arthritis. I suspect patient's redness, swelling and pain of the right great toe is most likely secondary to gout however, since patient is febrile without another source, will admit to the hospitalists. I discussed the results and plan of care with the patient in great details. - Diagnoses Provider Diagnoses: Fever - Physician Notifications Discussed Care Of Patient With: Sarah Wright Time Discussed With Above Provider: 11:52 Instructed by Provider To: Admit As Inpatient Discharge - Sign-Out/Discharge Documenting (check all that apply): Discharge/Admit/Transfer - Admit - Discharge Plan Condition: Stable Disposition: ADMITTED TO [facility] - Billing Disposition and Condition Condition: STABLE Disposition: Admitted to [facility] The documentation as recorded by the Antoni rivera Angela accurately reflects the service I personally performed and the decisions made by me, Bobbi Juarez MD.
[2017-11-25] MEDS: oxyCODONE/Acetamin 5/325 MG* TAB PO PRN (15:00)
[2017-11-25] MEDS: NS 0.9% 1000 ML* 1,000 ML IV SCH (16:08)
[2017-11-25] MEDS: ceFAZolin 2 GM PREMIX (*) 2 GM/50 ML BAG IVPB SCH ×2 (16:08→19:18)
--- NOTE | 2017-11-25 16:09 | RAD ---
INDICATION: Left shoulder pain, fever, tender infraspinatus muscle. COMPARISON: Comparison is made with a prior x-ray study of the left shoulder from November 25, 2017. TECHNIQUE: Axial, sagittal and coronal T1 and T2-weighted images of the left shoulder were obtained. FINDINGS: The bones are in normal alignment. No fracture or joint effusion is seen. No collection of fluid or abscess is seen. There is mild to moderate osteoarthritic change in the glenohumeral joint. There are mild hypertrophic changes present around the acromioclavicular joint and a small lateral acromial spur which would predispose to subacromial impingement. The rotator cuff tendons appear intact without evidence for tear or tendinosis. Postsurgical changes are noted in the glenoid process of the scapula, there appear to be several surgical anchors present. There is increased signal intensity in the superior labrum extending anterior to posterior consistent with a SLAP lesion. This extends to involve the posterior labrum. There are several sublabral cysts adjacent to the posterior labrum. The long head of the biceps tendon appears intact. IMPRESSION: 1. POSTSURGICAL CHANGES. 2. NO EVIDENCE FOR OSTEOMYELITIS OR ABSCESS. 3. SLAP LESION WITH EXTENSION INTO THE POSTERIOR LABRUM. 4. MILD TO MODERATE OSTEOARTHRITIC CHANGE IN THE GLENOHUMERAL JOINT.
[2017-11-25 17:15] LABS: ABS Basophils 0 10^3/ul (0-0.2); ABS Eosinophils 0.3 10^3/ul (0-0.6); ABS Lymphocytes 0.9 10^3/ul (1.0-4.8); ABS Monocytes 0.4 10^3/ul (0-0.8); ABS Neutrophils 6.7 10^3/ul (1.5-7.7); ABS Nucleated RBC 0 10^3/ul; Eosinophil % 3.9 % (0-6); Hematocrit 38 % (42-52); Hemoglobin 13.2 g/dl (14.0-18.0); Lymphocyte % 10.9 % (25-47); Mean Corpuscular HGB Conc 34 g/dl (31-36); Mean Corpuscular Hemoglobin 32 pg (27-31); Mean Corpuscular Volume 93 fL (80-94); Mean Platelet Volume 7.4 um3 (7.4-10.4); Nucleated Red Blood Cells % 0.1; Platelet Count 185 10^3/ul (150-450); Red Blood Count 4.14 10^6/ul (4.00-5.40); Red Cell Distribution Width 12 % (10.5-15); White Blood Count 8.3 10^3/ul (3.5-10.8)
[2017-11-25 17:29] LABS: INR 1.1 (0.77-1.02)
[2017-11-25 17:54] LABS: EGFR Non-African American 117.1 (>60)
[2017-11-25] MEDS: Acetaminophen TAB* 325 MG PO PRN (19:29)
[2017-11-25] MEDS: Heparin VIAL(*) 5000 UNITS/ML VIAL (FIVE THOUSAND) SUBCUT SCH (20:58)
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
--- NOTE | 2017-11-25 22:32 | CONS ---
CONSULTATION REPORT: DATE OF CONSULT: 11/25/17 ATTENDING PROVIDER: Dr. Edgar Mcclure. PRIMARY CARE PROVIDER: The patient does not have one. PSYCHIATRIST: Dr. Givens in [place]. MINT WAFER DEPOSITOR: Formerly, Dr. Carson; not currently seeing one. CHIEF COMPLAINT: Left shoulder pain, right toe pain with known MSSA septicemia , rule out septic joint. HISTORY OF PRESENT ILLNESS: The patient is a 42-year-old male who presented to [facility] on 11/24/17 with pain of his right foot and left shoulder x1 day. He has had intermittent swelling of the right foot over the past month, but never been this painful as it is at this point. The patient does not have a known history of gout. Toe pain developed at the same time as left shoulder pain, both developing the morning of 11/23/17. The patient states that the pain of his great toe is constant and has lessened since his arrival at the hospital. His left shoulder is also constant, exacerbated with deep breaths as well as range of motion. His pain has reportedly decreased by 25% since arrival at the hospital. Prior to arrival, he reported that he did have subjective fever and chills and he has had temperature T-max 102.3 during his hospital stay. The patient's past medical history includes atrial fibrillation for which he has had two ablations and has been primarily in normal sinus rhythm since 2010. He does not take any anticoagulation. His clipper automatic is Dr. Carson. He does have history of a left labral repair 20 years ago in his left shoulder. The patient has no history of trauma to the right toe or the left shoulder, though he reports he is in the process of moving. He does not recall any injury or any particularly heavy moving that he has done. The patient has had surgery in the past and tolerated anesthesia well. He has no history of heart attack or stroke. He has no history of blood clot. He does have a history of IV drug use including history of heroin, methamphetamine and marijuana. He states he has not used any IV injectable drugs in the past year. He continues to use occasional alcohol, smokes one-half pack a day of tobacco and uses marijuana regularly. PAST MEDICAL HISTORY: Significant for atrial fibrillation, status post ablation ; history of hypertension; history of SVT; history of mild asthma. PAST SURGICAL HISTORY: Left shoulder labrum repair with 3 anchors, cardiac ablation x2. ALLERGIES: NSAIDS reported as GI upset and concern for interaction with lithium , no true allergy. FAMILY HISTORY: Maternal side with cancer history. SOCIAL HISTORY: Alcohol use, 3 beers per day. Reports marijuana use. Reports smoking half-a-pack of cigarettes per day. Reports history of IV heroin use as well as methamphetamine, though not in the past year per the patient. REVIEW OF SYSTEMS: General: Confirms fever, chills. HEENT: Denies any changes in vision or headache. Cardiac: Denies any chest pain. Confirms infrequent heart fluttering, none currently. No chest pain. No irregular beats currently. Respiratory: Denies any difficulty breathing or cough. GI: Denies any abdominal upset, nausea, vomiting, diarrhea. : Denies any dysuria. Skin: Denies any current erythema, skin breakdown, known rashes. Hematology: Denies history of blood clot. Musculoskeletal: Confirms right foot pain, primarily right great toe as well as left shoulder pain. Neurologic : Denies any decreased sensation of right lower extremity or left upper extremity. PHYSICAL EXAM: Temperature 97.8 orally, pulse rate 79, respiratory rate 17, oxygen saturation 100%, blood pressure 111/65. General: The patient is in no acute distress. He is well nourished. HEENT: Head is normocephalic, atraumatic. Eyes: EOMI. Vascular: Radial pulses 2+ and symmetric. DP and PT pulses 2+ and symmetric. Lungs: Rate and effort of breathing within normal limits. Extremities: Lower extremities, the patient moves bilateral hips, knees and ankles well. Right foot, there is no erythema or edema of the right foot or right great toe. The patient is tender over the MTP joint though not exquisitely so. He is able to produce both active and passive range of motion of the right great toe without significant distress. He does have significant callusing throughout friction points of the foot. There is no warmth or fluctuance of the great toe. The patient does have an antalgic gait favoring the right foot. Left upper extremity, moves all 5 digits, wrist and elbow well. Left shoulder, passive range of motion, forward flexion of 0 to 160 degrees, abduction 0 to 110 degrees. Active range of motion, the patient can produce forward flexion and abduction to 90 degrees before pain. Pain is described to be over the area of the infraspinatus. Inspection of the shoulder reveals no erythema, no edema. Inspection of the back, no erythema, no edema of the upper back. The patient has no tenderness along the cervical or thoracic spine. He is tender over the infraspinatus. He is not tender over the scapular spine. He is not tender over the supraspinatus. He is not tender along the clavicle or over the AC joint. He is nontender over the shoulder joint itself. Neuro: Sensation is intact throughout the left upper extremity to light touch as well as right lower extremity to light touch. Speech is normal. The patient follows commands. Skin: There are no open lesions, lacerations, bruising, or erythema. 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 ASSESSMENT: Right great toe pain, left shoulder pain. Due to ability to range the glenohumeral joint quite well, it is unlikely that this joint is septic, though it is warranted to look for an abscess. Specific area of concern is around the infraspinatus as this is an area of point tenderness. PLAN: MRI of the left shoulder, repeat sed rate and CRP. The patient will remain n.p.o. I will hold his heparin. If MRI reveals abscess, we will wash the patient out tentatively tonight. This case has been discussed with Dr. Edgar Mcclure. SESAR RADFORD [id number]/[facility] #: [id number] ANIYAH
[2017-11-26] MEDS: NS 0.9% 1000 ML* 1,000 ML IV SCH ×2 (03:03→15:38)
[2017-11-26] MEDS: ceFAZolin 2 GM PREMIX (*) 2 GM/50 ML BAG IVPB SCH ×3 (03:06→19:56)
[2017-11-26] MEDS: oxyCODONE/Acetamin 5/325 MG* TAB PO PRN ×4 (03:07→23:08)
[2017-11-26] MEDS: Heparin VIAL(*) 5000 UNITS/ML VIAL (FIVE THOUSAND) SUBCUT SCH ×3 (05:31→22:09)
[2017-11-26 06:50] LABS: ABS Basophils 0 10^3/ul (0-0.2); ABS Eosinophils 0.7 10^3/ul (0-0.6); ABS Lymphocytes 1.2 10^3/ul (1.0-4.8); ABS Monocytes 0.7 10^3/ul (0-0.8); ABS Neutrophils 6.4 10^3/ul (1.5-7.7); ABS Nucleated RBC 0 10^3/ul; Eosinophil % 7.6 % (0-6); Hematocrit 39 % (42-52); Hemoglobin 13.2 g/dl (14.0-18.0); Lymphocyte % 13.5 % (25-47); Mean Corpuscular HGB Conc 34 g/dl (31-36); Mean Corpuscular Hemoglobin 32 pg (27-31); Mean Corpuscular Volume 93 fL (80-94); Mean Platelet Volume 7.7 um3 (7.4-10.4); Nucleated Red Blood Cells % 0; Platelet Count 222 10^3/ul (150-450); Red Blood Count 4.15 10^6/ul (4.00-5.40); Red Cell Distribution Width 13 % (10.5-15); White Blood Count 9.1 10^3/ul (3.5-10.8)
[2017-11-26 07:06] LABS: EGFR Non-African American 136.1 (>60)
[2017-11-26] MEDS: Venlafaxine EXT RELEASE CAP* 75 MG PO SCH ×2 (08:38→20:12)
[2017-11-26] MEDS: CMCS Lithium Carbonate ER (NF) 300 MG TAB.ER PO SCH ×2 (08:38→20:12)
[2017-11-26] MEDS: LORazepam TAB(*) 0.5 MG PO PRN ×3 (08:39→22:09)
[2017-11-26] MEDS: Amphetamine MIXED SALT TAB* 10 MG TAB PO SCH ×3 (08:52→17:08)
[2017-11-26] MEDS ORDERED: Lithium Carbonate TAB* 300 MG PO SCH (09:00)
--- NOTE | 2017-11-26 09:07 | PN ---
Progress Note - Progress Note Date of Service: 11/26/17 SOAP: Subjective: Patient describes no right foot pain. Left shoulder still hurts, relatively unchanged. As a review, patient describes left shoulder and right foot pain starting Wednesday11/23/17. Then some chills later that day. Admitted on 11/24/17 with an elevated WBC and body temperature and positive blood cultures. TTE negative. Distant past history of instability surgery left shoulder with no more recent pain there. Describes occasional history of left or right foot pain. IVDU, but describes no use in 1.5 years. Objective: NAD. Non-toxic appearing, comfortable in no clear pain. L shoulder - no swelling, including about the AC joint - PROM and AROM 180/90/90 - No significant pain or weakness with rotator cuff stress testing - Mild pain with Speeds and OBriens - No AC or biceps TTP - Patient points to posterior to the scapula as site of pain - No TTP of supraspinatus or infraspinatus muscle bellies - Mild TTP of thoracic left paraspinal muscles - NVID R foot - No [id number], erythema, open skin, TTP - NVID - Much callous on plantar aspect of foot Microbiology 11/24/17 10:24 Blood Venous Aerobic Blood Culture - Final 11/24/17 10:24 Blood Venous Blood MRSA/MSSA (PCR) - Final Staphylococcus Aureus Staphylococcus Aureus Mrsa Negative S.aureus Positive 11/24/17 10:24 Blood Venous Aerobic Blood Culture - Final 11/24/17 10:24 Blood Venous Blood MRSA/MSSA (PCR) - Final Staphylococcus Aureus Staphylococcus Aureus Mrsa Negative S.aureus Positive Selected Entries 11/25/17 11/25/17 11/26/17 19:53 23:36 03:12 Temperature 98.5 F 97.9 F 98.2 F Pulse Rate 74 Respiratory 20 Rate Blood Pressure 120/73 (mmHg) O2 Sat by Pulse 100 Oximetry Laboratory Tests 11/24/17 11/25/17 11/25/17 10:24 04:58 05:20 WBC 13.5 H 8.1 Neut % (Auto) ESR 26 H C-Reactive Protein Urine Opiates Screen Ur Amphetamines Screen U Cannabinoids Screen 11/25/17 11/25/17 11/25/17 05:20 12:53 17:05 WBC 8.3 Neut % (Auto) ESR C-Reactive Protein 146.07 H Urine Opiates Screen Presumptive positive A Ur Amphetamines Screen Presumptive positive A U Cannabinoids Screen Presumptive positive A 11/26/17 11/26/17 06:32 06:32 WBC 9.1 Neut % (Auto) 70.6 ESR C-Reactive Protein 90.55 H Urine Opiates Screen Ur Amphetamines Screen U Cannabinoids Screen MRI left shoulder: no abscess. glenohumeral OA, SLAP tear. Assessment: HD 3 with bacteremia unknown origin, left shoulder and right foot pain Plan: - No clear infection left shoulder or right foot - Defer to Hospitalist, but it seems BERNADETTE would make sense to ruleout endocarditis. Patient denied any recent respiratory or GI symptoms as possible source of infection. - Patient may follow up as an outpatient with orthopedics for left upper back and shoulder pain - Signing off for now. Contact me with any questions.
--- NOTE | 2017-11-26 10:57 | PN ---
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 Had echo. Fever improving. No rash or diarrhea. Objective: Vital Signs Temp 36.8 C 11/26/17 03:12 Pulse 74 11/26/17 03:12 Resp 18 11/26/17 08:39 BP 120/73 11/26/17 03:12 Pulse Ox 100 11/26/17 03:12 Intake & Output 11/25/17 11/26/17 11/26/17 18:59 06:59 18:59 Intake Total 530 1669 0 Output Total 0 0 Balance 530 1669 0 Weight 212 lb 3.2 oz Intake: IV Fluids 1204 NS (0.9%) 1204 IVPB 165 Cefazolin 55 NS (0.9%) 110 Oral 530 300 0 Output: Urine 0 0 Other: Estimated Void Medium # Bowel Movements 0 # Voids 2 Gen:awake, no distress Neuro:Ox3, CN 2-12 intact HEENT:no thrush Neck: no mass Heart:RRR no murmur Lungs:CTA BL Abd:+BS NTND soft Skin: no rash MSK: no spine tenderness; right foot no erythema or tenderness Laboratory Results - last 24 hr 11/25/17 11/25/17 11/25/17 05:20 05:20 12:53 WBC RBC Hgb Hct MCV MCH MCHC RDW Plt Count MPV Neut % (Auto) Lymph % (Auto) [place] % (Auto) Eos % (Auto) Baso % (Auto) Absolute Neuts (auto) Absolute Lymphs (auto) Absolute Monos (auto) Absolute Eos (auto) Absolute Basos (auto) Absolute Nucleated RBC Nucleated RBC % ESR 26 H INR (Anticoag Therapy) APTT Sodium Potassium Chloride Carbon Dioxide Anion Gap BUN Creatinine Est GFR ( Amer) Est GFR (Non-Af Amer) BUN/Creatinine Ratio Glucose Calcium C-Reactive Protein 146.07 H Urine Color [place] Urine Appearance Clear Urine pH 6.0 Ur Specific [place] 1.032 H Urine Protein 1+(30 mg/dl) A Urine Ketones Negative Urine Blood Negative Urine Nitrate Negative Urine Bilirubin Negative Urine Urobilinogen Positive A Ur Leukocyte Esterase Negative Urine WBC (Auto) Trace(0-5/hpf) Urine RBC (Auto) 3+(>10/hpf) A Ur Squamous Epith Cells Present A Urine Bacteria Absent Urine Glucose Negative Urine Ascorbic Acid * A Urine Opiates Screen Ur Barbiturates Screen Ur Phencyclidine Scrn Ur Amphetamines Screen U Benzodiazepines Scrn Urine Cocaine Screen U Cannabinoids Screen 11/25/17 11/25/17 11/25/17 12:53 17:05 17:05 WBC 8.3 RBC 4.14 Hgb 13.2 L Hct 38 L MCV 93 MCH 32 H MCHC 34 RDW 12 Plt Count 185 MPV 7.4 Neut % (Auto) 80.3 Lymph % (Auto) 10.9 L [place] % (Auto) 4.5 Eos % (Auto) 3.9 Baso % (Auto) 0.4 Absolute Neuts (auto) 6.7 Absolute Lymphs (auto) 0.9 L Absolute Monos (auto) 0.4 Absolute Eos (auto) 0.3 Absolute Basos (auto) 0 Absolute Nucleated RBC 0 Nucleated RBC % 0.1 ESR INR (Anticoag Therapy) 1.10 H APTT 27.3 Sodium Potassium Chloride Carbon Dioxide Anion Gap BUN Creatinine Est GFR ( Amer) Est GFR (Non-Af Amer) BUN/Creatinine Ratio Glucose Calcium C-Reactive Protein Urine Color Urine Appearance Urine pH Ur Specific [place] Urine Protein Urine Ketones Urine Blood Urine Nitrate Urine Bilirubin Urine Urobilinogen Ur Leukocyte Esterase Urine WBC (Auto) Urine RBC (Auto) Ur Squamous Epith Cells Urine Bacteria Urine Glucose Urine Ascorbic Acid Urine Opiates Screen Presumptive positive A Ur Barbiturates Screen None detected Ur Phencyclidine Scrn None detected Ur Amphetamines Screen Presumptive positive A U Benzodiazepines Scrn None detected Urine Cocaine Screen None detected U Cannabinoids Screen Presumptive positive A 11/25/17 11/26/17 11/26/17 17:05 06:32 06:32 WBC 9.1 RBC 4.15 Hgb 13.2 L Hct 39 L MCV 93 MCH 32 H MCHC 34 RDW 13 Plt Count 222 MPV 7.7 Neut % (Auto) 70.6 Lymph % (Auto) 13.5 L [place] % (Auto) 8.0 H Eos % (Auto) 7.6 H Baso % (Auto) 0.3 Absolute Neuts (auto) 6.4 Absolute Lymphs (auto) 1.2 Absolute Monos (auto) 0.7 Absolute Eos (auto) 0.7 H Absolute Basos (auto) 0 Absolute Nucleated RBC 0 Nucleated RBC % 0 ESR INR (Anticoag Therapy) APTT Sodium 138 Potassium 4.2 Chloride 106 Carbon Dioxide 28 Anion Gap 4 BUN 9 7 Creatinine 0.74 0.65 L Est GFR ( Amer) 141.7 164.6 Est GFR (Non-Af Amer) 117.1 136.1 BUN/Creatinine Ratio 10.8 Glucose 97 Calcium 8.4 L C-Reactive Protein 90.55 H Urine Color Urine Appearance Urine pH Ur Specific [place] Urine Protein Urine Ketones Urine Blood Urine Nitrate Urine Bilirubin Urine Urobilinogen Ur Leukocyte Esterase Urine WBC (Auto) Urine RBC (Auto) Ur Squamous Epith Cells Urine Bacteria Urine Glucose Urine Ascorbic Acid Urine Opiates Screen Ur Barbiturates Screen Ur Phencyclidine Scrn Ur Amphetamines Screen U Benzodiazepines Scrn Urine Cocaine Screen U Cannabinoids Screen Assessment: 1. MSSA bacteremia secondary to right foot infection, infective endocarditis on diff dx, BERNADETTE pending 2. right shoulder pain, no effusion or evidence of infection on MRI, no spine symptoms 3. 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 continue ancef 2 gm IV Q8hrs; fu BC pending, if endocarditis then 6 weeks IV abx, if not then 2 weeks IV abx. He is not a candidate for outpt IV abx given his hx of injection drugs. 35 minutes floor time >50% with patient and discussing options for IV antibiotic treatment and my recommendation for him to complete it or have complications up to and including , he understands that states that he is willing to stay.
[2017-11-26] MEDS ORDERED: Mouth Piece, Nicotine* 1 EACH CARTRIDGE INH PRN (11:02)
[2017-11-26] MEDS: Nicotine Inhaler* 10 MG AMP INH PRN ×2 (11:40→15:42)
[2017-11-26] MEDS ORDERED: Lidocaine 2% VISCOUS* 15 ML UDC ONE (13:26)
[2017-11-26] MEDS ORDERED: Flumazenil* 0.1 MG/ML 5 ML MDV ONE (13:26)
[2017-11-26] MEDS ORDERED: fentaNYL* 50 MCG/ML 2 ML VIAL (100 MCG VIAL) ONE (13:26)
[2017-11-26] MEDS ORDERED: Naloxone* 0.4 MG/ML 1 ML VIAL ONE (13:26)
[2017-11-26] MEDS ORDERED: Midazolam* 1 MG/ML 10 ML VIAL (10 MG) ONE (13:27)
[2017-11-26] MEDS ORDERED: Ondansetron ODT TAB* 4 MG ONE (14:07)
[2017-11-26] MEDS ORDERED: Ondansetron INJ* 2 MG/ML VIAL ONE (14:09)
--- NOTE | 2017-11-26 16:52 | TEE ---
Patient: BHARAT CAMPO [facility] Rec#: [id number] : 1975 Date: 11/26/2017 Age: 42y Height: 172.72 cm / 68.0 in Weight: 96.16 kg / 211.9 lbs Sex: M BSA: 2.1 Room#: 443 Type: Inpatient Referring: Sarah Wright DO Performing: Loraine Irwin MD Reading: Loraine Irwin MD Mainframe Applications Developer: Nathalie Noble RDCS Nurse: Nalya Marquez RN Nurse: Thelma Hernadez RN Transesophageal Echocardiogram Indication: MSSA Bacteremia BP: 144/95 HR: 98 Rhythm: NSR Findings History: IVDA,cellulitis right foor, a-fib s/p ablation,smoker. Technical Comments: The study quality is good. Completed at 1450. Left Ventricle: The left ventricular chamber size is normal. The estimated ejection fraction is 55-60%. Left Atrium: The left atrium is mildly dilated. There is no thrombus visualized in the left atrial appendage. Right Ventricle: The right ventricular cavity size is normal. The right ventricular global systolic function is normal. Right Atrium: The right atrium is slightly dilated. There is no patent foramen ovale visualized. There is no evidence of patent foramen ovale shunting. A patent foramen ovale is not demonstrated with color Doppler and agitated contrast. Aortic Valve: The aortic valve is trileaflet. There is no evidence of aortic valve thickening. There is no evidence of aortic regurgitation. There is no evidence of aortic stenosis. There is no aortic vegetation present. Mitral Valve: The mitral valve leaflets appear normal. Mitral inflow accomplished on transthoracic echo of 11/25/17 and not repeated. There is mild mitral regurgitation. There is no evidence of mitral stenosis. No vegetation is observed on the mitral valve. Tricuspid Valve: The tricuspid valve leaflets are normal. There is mild tricuspid regurgitation. There is no tricuspid stenosis. No vegetation is observed on the tricuspid valve. Pulmonic Valve: The pulmonic valve appears normal. There is no evidence of pulmonic regurgitation. There is no pulmonic stenosis. No vegetation is observed on the pulmonic valve. Pericardium: The pericardium appears normal. Aorta: There is mild dilatation of the ascending aorta. There is no dilatation of the aortic arch. There is no dilation of the aortic root. Pulmonary Artery: The main pulmonary artery appears normal. Venous: The bicaval view was obtained and appears normal. The pulmonary veins appear normal in size. 3 out of 4 seen. The flow pattern of the pulmonary veins appear normal. BERNADETTE Procedures: History and physical as well as labs were reviewed. The patient was in a fasting state. Risks and benefits of the procedure, including alternatives, were discussed and written informed consent was obtained. The patient and/or their health care in home sales representative expressed understanding of the procedure, risks and benefits. Baseline and continuous monitoring of blood pressure, heart rate, pulse oximetry and heart rhythm was performed throughout the procedure. The appropriate time-out procedure was performed as per [facility] protocol. The patient was placed in the left lateral decubitus position. The patient's posterior pharynx was anesthetized with 20ml of 2% viscous lidocaine. The patient received IV Midazolam with a total dose of 10mg. Also 4 mg IV Zofran were given. An oral bite block was inserted for protection of oral dentition. 100mcg. The multiplane transesophageal echocardiogram probe was inserted through the posterior oropharynx and advanced into the esophagus without difficulty. Multiple 2D images were obtained of the heart and its related structures. Color flow Doppler was used for evaluation. Spectral Doppler was also used. The transgastric view was not obtained as it was contraindicated by the patient's medical condition. This was secondary to a small amount of emesis that occured during this study. The atrial septum was interrogated with color flow Doppler. At the conclusion of the procedure the probe was removed with continuous suction without complications. The patient tolerated the procedure with no apparent complications. Contrast: Normal saline was used as contrast for the bubble study. Intravenous contrast was used to help determine presence of intracardiac shunting. Conclusions The left ventricular chamber size is normal. The estimated ejection fraction is 55-60%. The left atrium is mildly dilated. The right atrium is slightly dilated. There is mild mitral regurgitation. There is mild tricuspid regurgitation. There is mild dilatation of the ascending aorta. No obvious intracavitary masses, clots or vegetations seen. Measurements Name Value Normal Range Aortic Annulus 1.8 cm (1.4 - 2.6) Ao root diameter (2D) 3.2 cm (2.1 - 3.5) Ascending Ao 3.6 cm (2.1 - 3.4)
--- NOTE | 2017-11-26 18:35 | PN ---
Subjective Date of Service: 11/26/17 Interval History: . chart reviewed discussed case with Dr. Díaz and Dr. Nicole patient on IV Abx for MSA bacteremia BERNADETTE today (neg for vegetations or lesions; nl LVEF) Patient initially frustrated with being hospitalized, (even considered leaving AMA) but is not doing much better. denies CP, SOB, LH NPO before BERNADETTE --> then regular diet MRI shoulder did not reveal osteomyelitis. . Family History: Unchanged from Admission Social History: Unchanged from Admission Past Medical History: Unchanged from Admission Objective Active Medications: Acetaminophen (Tylenol Tab*) 975 mg PO Q6H PRN PRN Reason: FEVER/PAIN Last Admin: 11/25/17 19:29 Dose: 975 mg Al Hydrox/Mg Hydrox/Simethicone (Maalox Plus*) 30 ml PO Q6H PRN PRN Reason: INDIGESTION Albuterol (Ventolin 2.5 Mg/3 Ml Neb.Kamilla*) 2.5 mg INH [id number] AWAKE PRN PRN Reason: sob/wheezing Amphetamine/Dextroamphetamine (Adderall Tab*) 15 mg PO 0800,1200,1600 [facility] Last Admin: 11/26/17 17:08 Dose: 15 mg Device (Nicotine Mouth Piece*) 1 each INH .USE WITH NICOTROL PRN PRN Reason: CRAVING Last Admin: 11/26/17 11:40 Dose: 1 each Heparin Sodium (Porcine) (Heparin Vial(*)) 5,000 units SUBCUT Q8HR [facility] Last Admin: 11/26/17 15:40 Dose: 5,000 units Cefazolin Sodium/Dextrose (Kefzol 2 Gm Premix(*)) 2 gm in 50 mls @ 100 mls/hr IVPB 0430,1230,2030 [facility] Last Admin: 11/26/17 11:47 Dose: 100 mls/hr Sodium Chloride (Ns 0.9% 1000 Ml*) 1,000 mls @ 100 mls/hr IV PER RATE [facility] Last Admin: 11/26/17 15:38 Dose: 100 mls/hr Kaplan Carbonate (Kaplan Carbonate Er (Nf)) 300 mg PO BEDTIME [facility] Kaplan Carbonate (Kaplan Carbonate Er (Nf)) 600 mg PO DAILY [facility] Last Admin: 11/26/17 08:38 Dose: 600 mg Lorazepam (Ativan Tab(*)) 0.5 mg PO Q6H PRN PRN Reason: ANXIETY Last Admin: 11/26/17 15:39 Dose: 0.5 mg Magnesium Hydroxide (Milk Of Magnleia Liq*) 30 ml PO Q4H PRN PRN Reason: CONSTIPATION Nicotine (Nicotine Inhaler*) 10 mg INH Q2H PRN PRN Reason: CRAVING Last Admin: 11/26/17 15:42 Dose: 10 mg Nicotine Polacrilex (Nicotine Gum*) 2 mg PO Q2H PRN PRN Reason: CRAVING Ondansetron HCl (Zofran 40 Mg Vial*) 4 mg IV Q4H PRN PRN Reason: NAUSEA/VOMITING Oxycodone/Acetaminophen (Percocet 5/325 Tab*) 2 tab PO Q6H PRN PRN Reason: Pain Last Admin: 11/26/17 17:08 Dose: 2 tab Venlafaxine HCl (Effexor Xr Cap*) 150 mg PO BID [facility] Last Admin: 11/26/17 08:38 Dose: 150 mg Vital Signs - 8 hr 11/26/17 11/26/17 11/26/17 11:39 13:31 13:46 Temperature Pulse Rate 67 70 Respiratory 18 Rate Blood Pressure 144/94 144/95 (mmHg) O2 Sat by Pulse 100 100 Oximetry 11/26/17 11/26/17 11/26/17 13:54 13:59 14:01 Temperature Pulse Rate 71 73 73 Respiratory Rate Blood Pressure 128/93 125/79 (mmHg) O2 Sat by Pulse 100 100 100 Oximetry Oxygen Devices in Use Now: None Appearance: NAD Eyes: No Scleral Icterus Ears/Nose/Mouth/Throat: Clear Oropharnyx Neck: Trachea Midline Respiratory: Symmetrical Chest Expansion and Respiratory Effort Cardiovascular: NL Sounds; No Murmurs; No JVD Abdominal: NL Sounds; No Tenderness; No Distention Lymphatic: No Cervical Adenopathy Extremities: No Edema Skin: No Rash or Ulcers Neurological: Alert and Oriented x 3 Lines/Tubes/Other Access: Clean, Dry and Intact Peripheral IV Nutrition: Taking PO's Result Diagrams: 11/26/17 06:32 11/26/17 06:32 Additional Lab and Data: . Microbiology and Other Data: Microbiology 11/24/17 10:24 Aerobic Blood Culture - Preliminary Blood Venous Blood MRSA/MSSA (PCR) - Final Mrsa Negative S.aureus Positive 11/24/17 10:24 Aerobic Blood Culture - Preliminary Blood Venous Anaerobic Blood Culture - Preliminary Blood MRSA/MSSA (PCR) - Final Mrsa Negative S.aureus Positive Assess/Plan/Problems-Billing . Assessment: Mr Hurst is a 42yo M with PMH of atrial fibrillation s/p ablation x 2, anxiety , depression, ADHD, left shoulder trauma requiring surgery >20 years ago, prior h/o IVDU (heroin/meth), who presented to ED with c/o left shoulder/right foot pain, fever, chills, found to have MSSA septicemia. - Patient Problems (1) MSSA (methicillin susceptible Staphylococcus aureus) septicemia Current Visit: Yes Status: Acute Priority: High Code(s): A41.01 - SEPSIS DUE TO METHICILLIN SUSCEPTIBLE STAPHYLOCOCCUS AUREUS Comment: - Patient states he last IV drug use was 1 year ago. - Two bottles blood cultures growing MSSA. - Continue IVF, Cefazolin. - ID consult appreciated - BERNADETTE negative for vegetation (2) ADHD Current Visit: Yes Status: Acute Comment: - Continue Adderall. (3) Afib Current Visit: Yes Status: Acute Code(s): I48.91 - UNSPECIFIED ATRIAL FIBRILLATION Comment: - S/p ablation x 2. - In NSR, not on any cardiac medications. (4) Anxiety Current Visit: Yes Status: Acute Priority: High Code(s): F41.9 - ANXIETY DISORDER, UNSPECIFIED Comment: - Patient also has depression and possible bipolar. - Continue Kaplan, alprazolam, and Effexor. (5) DVT prophylaxis Current Visit: Yes Status: Acute Priority: High Code(s): GKK1585 - Comment: - SQ heparin. (6) Left shoulder pain Current Visit: Yes Status: Acute Code(s): M25.512 - PAIN IN LEFT SHOULDER Comment: - Had shoulder trauma with surgery 20 years ago, but denies chronic pain. This pain is new and started 3 days ago. Concern for infection since he's bacteremic. - MRI shoulder neg for osteo; appreciate orthopedic surgery consult (7) Right foot pain Current Visit: Yes Status: Acute Priority: High Code(s): M79.671 - PAIN IN RIGHT FOOT Comment: - Also acute in the setting of bacteremia. - Uric acid was 5.6, CRP 89, ESR 28. - ?? cellulitis (8) Full code status Current Visit: Yes Status: Acute Priority: High Code(s): Z78.9 - OTHER SPECIFIED HEALTH STATUS Status and Disposition: . inpatient
[2017-11-27] MEDS: ceFAZolin 2 GM PREMIX (*) 2 GM/50 ML BAG IVPB SCH ×3 (04:12→20:11)
[2017-11-27] MEDS: NS 0.9% 1000 ML* 1,000 ML IV SCH ×2 (04:14→22:55)
[2017-11-27] MEDS: oxyCODONE/Acetamin 5/325 MG* TAB PO PRN ×2 (05:22→11:44)
[2017-11-27] MEDS: LORazepam TAB(*) 0.5 MG PO PRN ×2 (05:22→11:45)
[2017-11-27] MEDS: Heparin VIAL(*) 5000 UNITS/ML VIAL (FIVE THOUSAND) SUBCUT SCH ×3 (05:23→20:34)
[2017-11-27] MEDS: Venlafaxine EXT RELEASE CAP* 75 MG PO SCH ×2 (08:12→20:34)
[2017-11-27] MEDS: Amphetamine MIXED SALT TAB* 10 MG TAB PO SCH ×3 (08:13→15:46)
[2017-11-27] MEDS: CMCS Lithium Carbonate ER (NF) 300 MG TAB.ER PO SCH ×2 (08:14→20:10)
[2017-11-27] MEDS: Nicotine Inhaler* 10 MG AMP INH PRN ×2 (08:14→17:40)
[2017-11-27] MEDS ORDERED: Albuterol HFA INHALER* 8 gm MDI INH PRN (14:10)
[2017-11-27] MEDS ORDERED: Spiriva Inhaler DEVICE* 1 EACH DEVICE SCH (15:00)
[2017-11-27] MEDS ORDERED: Spiriva Inhaler DEVICE* 1 EACH DEVICE INH SCH (15:00)
[2017-11-27] MEDS ORDERED: LORazepam INJ* 2 MG/ML 1 ML VIAL ONE (16:29)
[2017-11-27] MEDS ORDERED: Ziprasidone IM INJ* 20 MG/ML VIAL IM ONE (16:32)
[2017-11-27] MEDS ORDERED: Ziprasidone IM INJ* 20 MG/ML VIAL IM STA (16:35)
[2017-11-27] MEDS ORDERED: HYDROmorphone INJ* 2 MG/ML CARPUJECT SYRINGE IV SLOW PU ONE (16:36)
[2017-11-27] MEDS ORDERED: LORazepam INJ* 2 MG/ML 1 ML VIAL IV PUSH STA (16:42)
[2017-11-27] MEDS ORDERED: HYDROmorphone INJ* 2 MG/ML CARPUJECT SYRINGE ONE (16:43)
[2017-11-27] MEDS: Tiotropium CAP.INH* CAP.INH/18 MCG (USE ORDER SET !) INH SCH (16:48)
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
[2017-11-27] MEDS: Mometasone/Formoter 200/5 MDI INH SCH (20:43)
[2017-11-27] MEDS: Ziprasidone * 20 MG CAP (generic Geodon) PO SCH (22:53)
[2017-11-28] MEDS: oxyCODONE/Acetamin 5/325 MG* TAB PO PRN ×3 (00:34→17:07)
[2017-11-28] MEDS: ceFAZolin 2 GM PREMIX (*) 2 GM/50 ML BAG IVPB SCH ×3 (03:45→20:15)
[2017-11-28] MEDS: Heparin VIAL(*) 5000 UNITS/ML VIAL (FIVE THOUSAND) SUBCUT SCH ×3 (04:54→20:16)
[2017-11-28 06:11] LABS: ABS Basophils 0.1 10^3/ul (0-0.2); ABS Eosinophils 0.8 10^3/ul (0-0.6); ABS Lymphocytes 1.9 10^3/ul (1.0-4.8); ABS Monocytes 0.6 10^3/ul (0-0.8); ABS Neutrophils 3.6 10^3/ul (1.5-7.7); ABS Nucleated RBC 0 10^3/ul; Hematocrit 36 % (42-52); Lymphocyte % 27.4 % (25-47); Mean Corpuscular HGB Conc 33 g/dl (31-36); Mean Corpuscular Hemoglobin 31 pg (27-31); Mean Corpuscular Volume 93 fL (80-94); Mean Platelet Volume 7.2 um3 (7.4-10.4); Nucleated Red Blood Cells % 0; Platelet Count 287 10^3/ul (150-450); Red Blood Count 3.87 10^6/ul (4.00-5.40); Red Cell Distribution Width 13 % (10.5-15); White Blood Count 6.9 10^3/ul (3.5-10.8)
[2017-11-28 06:33] LABS: EGFR Non-African American 146.4 (>60)
[2017-11-28] MEDS: Mometasone/Formoter 200/5 MDI INH SCH ×2 (08:27→19:29)
[2017-11-28] MEDS: Tiotropium CAP.INH* CAP.INH/18 MCG (USE ORDER SET !) INH SCH (08:28)
[2017-11-28] MEDS: CMCS Lithium Carbonate ER (NF) 300 MG TAB.ER PO SCH ×2 (08:29→20:16)
[2017-11-28] MEDS: Venlafaxine EXT RELEASE CAP* 75 MG PO SCH ×2 (08:29→20:16)
[2017-11-28] MEDS: NS 0.9% 1000 ML* 1,000 ML IV SCH (08:29)
[2017-11-28] MEDS: Ziprasidone * 20 MG CAP (generic Geodon) PO SCH ×2 (08:30→20:16)
[2017-11-28] MEDS: Amphetamine MIXED SALT TAB* 10 MG TAB PO SCH ×3 (08:30→17:05)
[2017-11-28] MEDS: HYDROmorphone INJ* 2 MG/ML CARPUJECT SYRINGE IV SLOW PU PRN ×4 (08:41→23:04)
[2017-11-28] MEDS: Acetaminophen TAB* 325 MG PO PRN (11:15)
[2017-11-28] MEDS: LORazepam TAB(*) 1 MG PO PRN ×2 (11:16→18:57)
[2017-11-28] MEDS: Nicotine Inhaler* 10 MG AMP INH PRN ×2 (12:58→18:57)
[2017-11-28] MEDS ORDERED: Enalapril TAB* 5 MG PO ONE (16:21)
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
[2017-11-29] MEDS: ceFAZolin 2 GM PREMIX (*) 2 GM/50 ML BAG IVPB SCH ×3 (03:48→21:07)
[2017-11-29] MEDS: oxyCODONE/Acetamin 5/325 MG* TAB PO PRN ×3 (04:07→18:28)
[2017-11-29] MEDS: LORazepam TAB(*) 1 MG PO PRN ×3 (04:08→15:43)
[2017-11-29] MEDS: Heparin VIAL(*) 5000 UNITS/ML VIAL (FIVE THOUSAND) SUBCUT SCH ×3 (05:16→22:36)
[2017-11-29] MEDS: HYDROmorphone INJ* 2 MG/ML CARPUJECT SYRINGE IV SLOW PU PRN ×4 (07:12→21:07)
[2017-11-29] MEDS: Nicotine Inhaler* 10 MG AMP INH PRN ×2 (07:56→15:43)
[2017-11-29] MEDS: Amphetamine MIXED SALT TAB* 10 MG TAB PO SCH ×3 (07:57→15:57)
[2017-11-29] MEDS: Tiotropium CAP.INH* CAP.INH/18 MCG (USE ORDER SET !) INH SCH (08:09)
[2017-11-29] MEDS: Mometasone/Formoter 200/5 MDI INH SCH ×2 (08:09→19:52)
[2017-11-29] MEDS: Ziprasidone * 20 MG CAP (generic Geodon) PO SCH ×2 (09:45→21:08)
[2017-11-29] MEDS: Lisinopril TAB* 10 MG PO SCH (09:46)
[2017-11-29] MEDS: CMCS Lithium Carbonate ER (NF) 300 MG TAB.ER PO SCH ×2 (09:47→21:36)
[2017-11-29] MEDS: Venlafaxine EXT RELEASE CAP* 75 MG PO SCH ×2 (09:53→21:07)
--- NOTE | 2017-11-29 11:45 | PN ---
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 Foot back to baseline. No fever, rash, or diarrhea. Objective: Vital Signs Temp 36.8 C 11/29/17 08:35 Pulse 80 11/29/17 08:05 Resp 18 11/29/17 11:32 BP 152/100 11/29/17 07:14 Pulse Ox 99 11/29/17 07:14 Intake & Output 11/28/17 11/29/17 11/29/17 18:59 06:59 18:59 Intake Total 595 565 Output Total 0 0 Balance 595 565 Intake: IV Fluids 75 55 Cefazolin 55 NS (0.9%) 20 55 IVPB 110 Cefazolin 55 NS (0.9%) 55 Oral 520 400 Output: Urine 0 0 Other: Estimated Void Medium # Voids 1 1 Gen:awake, no distress Neuro:Ox3 HEENT:no thrush Heart:RRR no murmur Lungs:CTA BL Abd:+BS NTND soft Skin: no rash MSK: no spine tenderness; right foot no erythema or tenderness Assessment: 1. MSSA bacteremia secondary to right foot infection, BERNADETTE negative 2. right shoulder pain, no effusion or evidence of infection on MRI, no spine symptoms 3. 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 continue ancef 2 gm IV Q8hrs day 10/18 via peripheral IV. Weekly cbc, cmp, crp. If he leaves AMA, keflex 500 mg po tid to finish course Discussed with Dr Solomon 25 minutes floor time >50% face to face in counseling regarding need for ongoing IV antibiotics.
[2017-11-29] MEDS ORDERED: LORazepam TAB(*) 1 MG PO ONE (20:49)
[2017-11-30] MEDS: oxyCODONE/Acetamin 5/325 MG* TAB PO PRN ×4 (00:19→19:59)
[2017-11-30] MEDS: ceFAZolin 2 GM PREMIX (*) 2 GM/50 ML BAG IVPB SCH ×3 (04:16→21:24)
[2017-11-30] MEDS: HYDROmorphone INJ* 2 MG/ML CARPUJECT SYRINGE IV SLOW PU PRN ×5 (04:16→21:22)
[2017-11-30] MEDS: Heparin VIAL(*) 5000 UNITS/ML VIAL (FIVE THOUSAND) SUBCUT SCH ×3 (04:49→21:23)
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
[2017-11-30] MEDS: Ziprasidone * 20 MG CAP (generic Geodon) PO SCH ×2 (08:38→21:24)
[2017-11-30] MEDS: Lisinopril TAB* 10 MG PO SCH (08:38)
[2017-11-30] MEDS: Venlafaxine EXT RELEASE CAP* 75 MG PO SCH ×2 (08:39→21:24)
[2017-11-30] MEDS: Nicotine GUM* 2 MG PO PRN (08:40)
[2017-11-30] MEDS: Nicotine Inhaler* 10 MG AMP INH PRN ×2 (08:40→17:29)
[2017-11-30] MEDS: Amphetamine MIXED SALT TAB* 10 MG TAB PO SCH ×3 (08:51→15:38)
[2017-11-30] MEDS: LORazepam TAB(*) 1 MG PO PRN ×2 (08:51→19:59)
[2017-11-30] MEDS: CMCS Lithium Carbonate ER (NF) 300 MG TAB.ER PO SCH ×2 (09:36→21:24)
[2017-11-30] MEDS: Tiotropium CAP.INH* CAP.INH/18 MCG (USE ORDER SET !) INH SCH ×2 (10:21→16:40)
[2017-11-30] MEDS: Mometasone/Formoter 200/5 MDI INH SCH ×3 (10:21→20:52)
[2017-12-01] MEDS: ceFAZolin 2 GM PREMIX (*) 2 GM/50 ML BAG IVPB SCH ×3 (05:02→19:58)
[2017-12-01] MEDS: Heparin VIAL(*) 5000 UNITS/ML VIAL (FIVE THOUSAND) SUBCUT SCH ×3 (05:08→21:30)
[2017-12-01] MEDS: HYDROmorphone INJ* 2 MG/ML CARPUJECT SYRINGE IV SLOW PU PRN ×4 (05:50→19:58)
[2017-12-01] MEDS: Tiotropium CAP.INH* CAP.INH/18 MCG (USE ORDER SET !) INH SCH (07:42)
[2017-12-01] MEDS: Mometasone/Formoter 200/5 MDI INH SCH ×2 (07:43→20:22)
[2017-12-01] MEDS: oxyCODONE/Acetamin 5/325 MG* TAB PO PRN ×3 (08:27→22:34)
[2017-12-01] MEDS: Lisinopril TAB* 10 MG PO SCH (08:28)
[2017-12-01] MEDS: CMCS Lithium Carbonate ER (NF) 300 MG TAB.ER PO SCH ×2 (08:28→19:58)
[2017-12-01] MEDS: Ziprasidone * 20 MG CAP (generic Geodon) PO SCH ×2 (08:28→19:58)
[2017-12-01] MEDS: Venlafaxine EXT RELEASE CAP* 75 MG PO SCH ×3 (08:28→16:57)
[2017-12-01] MEDS: Amphetamine MIXED SALT TAB* 10 MG TAB PO SCH ×3 (08:52→16:57)
[2017-12-01] MEDS: LORazepam TAB(*) 1 MG PO PRN ×3 (10:57→22:34)
[2017-12-01] MEDS: Nicotine GUM* 2 MG PO PRN (13:59)
[2017-12-01] MEDS: Nicotine Inhaler* 10 MG AMP INH PRN (14:00)
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
[2017-12-01 19:08] VITALS: BP 142/86
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
== END 2017-12-01 23:30 | disposition left against medical advice (07) | DRG 720 ==
LOC: ED 09:29 → MEDTELE 12:54 → OBSVTOIN 11-25 09:58 → MEDTELE 11-27 17:33 → MED 11-29 22:10
PROVIDERS: ADMIT Hospitalist; ATTEND Hospitalist
PROC: B24BZZ4 Ultrasonography of Heart with Aorta, Transesophageal (ICD-10-PCS; principal; 2017-11-26 12:30)
DX: A41.01 Sepsis due to Methicillin susceptible Staphylococcus aureus (principal); L03.115 Cellulitis of right lower limb; I48.91 Unspecified atrial fibrillation; F17.210 Nicotine dependence, cigarettes, uncomplicated; I10 Essential (primary) hypertension; F41.9 Anxiety disorder, unspecified; F90.9 Attention-deficit hyperactivity disorder, unspecified type; M19.071 Primary osteoarthritis, right ankle and foot; F32.9 Major depressive disorder, single episode, unspecified; F12.90 Cannabis use, unspecified, uncomplicated; M25.512 Pain in left shoulder; R45.6 Violent behavior; G89.29 Other chronic pain; I08.1 Rheumatic disorders of both mitral and tricuspid valves; I77.819 Aortic ectasia, unspecified site; Z72.89 Other problems related to lifestyle; Z88.6 Allergy status to analgesic agent; Z80.1 Family history of malignant neoplasm of trachea, bronchus and lung
CPT/HCPCS: 36415; 71045; 80048; 80053; 80178; 80307; 81003; 81015; 82565; 83605; 84484; 84520; 84550; 85025; 85610; 85652; 85730; 86140; 87040; 87077; 87086; 87150; 87186; 87205; 93005; 93306; 93312; 93325; 94640; 99156; 99157; 99211; 99284; 99406; A9270-GY; G0378; G0463; J0690; J1170; J1644; J1885; J2060; J2250; J2310; J2405; J2543; J3010; J3370; J3486